=== PATIENT | female | born 1990 | race Hispanic/Latino ===

== ENCOUNTER → 2023-05-27 | Emergency (ER) | payer OTHER ==
[~2023-05-27] MED LIST: DIAZEPAM 5 MG TABLET ONE; KETOROLAC 30 MG/ML INJ ONE; MORPHINE 4 MG/ML SYR ONE; NA CHLORIDE 0.9% 1,000 ML ONE; ONDANSETRON 4 MG/2 ML VIAL ONE; dexAMETHasone 10 MG/ML VIAL ONE
--- OUTSIDE RECORDS SUMMARY | 2023-05-27 05:18 | XMS REPORT | Continuity of Care Document ---
Author Name Unknown Address [address] [place], [place] [address]onnect Address [address] [place] [address] Care Team Providers Care City Carrier Name Role Phone Alka Cadena Attending Clinician Unavailable Encounters Start Date/Time End Date/Time Encounter Type Admission Type Attending Clinicians Care Facility Care Department Encounter ID Source 2023-03-01 08:51:01 Outpatient Alka Cadena [facility] [id number] [facility] [place] [facility]
[2023-05-27 05:55] LABS: Absolute Lymphocytes (CBC) 2.1 K/uL (0.7-4.9); Hematocrit 39.8 % (36.0-45.0); Lymphocytes % 30.1 % (15.3-44.8); MPV 6.9 fL (7.6-11.3); Platelets 311 thou/uL (152-406); RBC Red Blood Cell Count 4.57 M/uL (3.86-4.86)
[2023-05-27 06:09] LABS: Bilirubin Total 0.6 mg/dL (0.2-1.0); Potassium 3.9 mEq/L (3.5-5.1); Protein, Total 7.7 g/dL (6.4-8.2)
[2023-05-27 06:10] LABS: Specific Gravity 1.014 (1.005-1.030)
[2023-05-27 06:12] LABS: Specific Gravity 1.014 (1.005-1.030); Urine Bacteria None Seen /HPF (<20); Urine Bilirubin NEGATIVE (Negative); Urine Blood Negative (Negative); Urine Clarity Extremely Turbid (Clear); Urine Color Light-Yellow (Yellow); Urine Glucose NEGATIVE (Negative); Urine Protein NEGATIVE (Negative); Urine RBC <5 /HPF (None Seen); Urine Urobilinogen Normal (Normal); Urine pH 6.5 (5.0-7.0)
--- NOTE | 2023-05-27 07:02 | EDPHYS ---
Physician Documentation [facility] Name: Mary Jo Salcido Age: 32 yrs Sex: Female : 1990 Arrival Date: 05/27/2023 Time: 05:15 Bed 18 Private MD: ED Physician Pedro Frederick HPI: 05/27 05:38 This 32 yrs old Female presents to ER via Unassigned with complaints of Neck keon and Upper Back Pain, Headache. 05:38 The patient or guardian complains of decreased range of motion, pain, that is acute. keon The symptoms are located on the back of neck. Onset: The symptoms/episode began/occurred 1 day(s) ago. Context: The problem was sustained at work, The neck injury/problem resulted from lifting. Associated signs and symptoms: The patient has no apparent associated signs or symptoms. The pain radiates to the left trapezius and left scapular area. Modifying factors: The symptoms are alleviated by remaining still, the symptoms are aggravated by movement, pressure. Severity of symptoms: At their worst the symptoms were moderate, in the emergency department the symptoms are unchanged. The patient has not experienced similar symptoms in the past. Historical: - Allergies: 05:40 No Known Allergies; ha1 - Immunization history:: Adult Immunizations up to date. - Social history:: Smoking status: Patient denies any tobacco usage or history of. - Family history:: not pertinent. ROS: 05:38 Constitutional: Negative for fever, chills, and weight loss, Eyes: Negative for injury, keon pain, redness, and discharge, ENT: Negative for injury, pain, and discharge, Cardiovascular: Negative for chest pain, palpitations, and edema, Respiratory: Negative for shortness of breath, cough, wheezing, and pleuritic chest pain, Abdomen/GI: Negative for abdominal pain, nausea, vomiting, diarrhea, and constipation, Back: Negative for injury and pain, : Negative for injury, bleeding, discharge, and swelling, MS/Extremity: Negative for injury and deformity, Skin: Negative for injury, rash, and discoloration, Neuro: Negative for headache, weakness, numbness, tingling, and seizure, 05:38 Neck: Positive for pain with movement, pain at rest, stiffness, Exam: 05:38 Constitutional: This is a well developed, well nourished patient who is awake, alert, keon and in no acute distress. Head/Face: Normocephalic, atraumatic. Eyes: Pupils equal round and reactive to light, extra-ocular motions intact. Lids and lashes normal. Conjunctiva and sclera are non-icteric and not injected. Cornea within normal limits. Periorbital areas with no swelling, redness, or edema. ENT: Nares patent. No nasal discharge, no septal abnormalities noted. Tympanic membranes are normal and external auditory canals are clear. Oropharynx with no redness, swelling, or masses, exudates, or evidence of obstruction, uvula midline. Mucous membranes moist. Chest/axilla: Normal chest wall appearance and motion. Nontender with no deformity. No lesions are appreciated. Cardiovascular: Regular rate and rhythm with a normal S1 and S2. No gallops, murmurs, or rubs. Normal PMI, no JVD. No pulse deficits. Respiratory: Lungs have equal breath sounds bilaterally, clear to auscultation and percussion. No rales, rhonchi or wheezes noted. No increased work of breathing, no retractions or nasal flaring. Abdomen/GI: Soft, non-tender, with normal bowel sounds. No distension or tympany. No guarding or rebound. No evidence of tenderness throughout. Back: No spinal tenderness. No costovertebral tenderness. Full range of motion. Skin: Warm, dry with normal turgor. Normal color with no rashes, no lesions, and no evidence of cellulitis. MS/ Extremity: Pulses equal, no cyanosis. Neurovascular intact. Full, normal range of motion. Neuro: Awake and alert, GCS 15, oriented to person, place, time, and situation. Cranial nerves II-XII grossly intact. Motor strength 5/5 in all extremities. Sensory grossly intact. Cerebellar exam normal. Normal gait. Psych: Awake, alert, with orientation to person, place and time. Behavior, mood, and affect are within normal limits. 05:38 Neck: External neck: is normal, no acute changes, ROM/movement: limited range of motion, that is mild, that is moderate, in any direction, Lymph nodes: no appreciated lymphadenopathy, Vital Signs: 05:36 BP 133 / 80; Pulse 65; Resp 17 S; Temp 97.9(O); Pulse Ox 100% on R/A; Weight 77.11 kg; ha1 Height 5 ft. 7 in. ; Pain 10/10; 06:30 BP 110 / 76; Pulse 58; Resp 17 S; Pulse Ox 100% on R/A; ha1 05:36 Body Mass Index 26.63 (77.11 kg, 170.18 cm) 1 05:36 Pain Scale: Adult ha MDM: 05:22 Patient medically screened. [facility] 05:38 Differential diagnosis: Cervical Disc Herniation cervical strain, Degenerative Disc keon Disease fracture, Neck Contusion Osteoarthritis Spondylolisthesis Spondylosis torticollis, Whiplash Injury. Data reviewed: vital signs, nurses notes, lab test result(s), EKG. Consideration of Admission/Observation Escalation of care including admission/observation considered. I considered the following discharge prescriptions or medication management in the emergency department Medications were administered in the Emergency Department. See MAR. Independent interpretation of the following test(s) in the Emergency Department CT Scan: My interpretation is ct c spine. Test considered but Not performed: CT: c spine. Historians other than the Patient: Spouse/Significant Other: well informed. Care significantly affected by the following chronic conditions: none. 05/27 05:35 Order name: Urinalysis w/ reflexes; Complete Time: 07:00 [facility] 05/27 05:35 Order name: PREGU; Complete Time: 07:00 [facility] 05/27 05:35 Order name: CBC with Diff; Complete Time: 07:00 [facility] 05/27 05:35 Order name: Comprehensive Metabolic Panel; Complete Time: 07:00 [facility] 05/27 05:35 Order name: CT C Spine [facility] 05/27 05:43 Order name: IV Start; Complete Time: 05:43 lg3 Administered Medications: 05:50 Drug: NS 0.9% IV 1000 ml IV at 1 bolus Per protocol; 1000 mL bolus Route: IV; Rate: 1 ha1 bolus; Site: right antecubital; 07:00 Follow up: Response: No adverse reaction; IV Status: Completed infusion; IV Intake: ha1 1000ml 05:50 Drug: Ondansetron IVP 4 mg IVP once; over 2 minutes Route: IVP; Site: right antecubital;ha1 06:30 Follow up: Response: No adverse reaction [facility] 05:52 Drug: Ketorolac IVP 30 mg IVP once Route: IVP; Site: right antecubital; ha1 06:30 Follow up: Response: No adverse reaction; Marked relief of symptoms; Pain is decreased ha1 05:54 Drug: morphine IVP or IV 4 mg IVP once over 4 mins Route: IVP; Infused Over: 4 mins; ha1 Site: right antecubital; 06:30 Follow up: Response: No adverse reaction; Pain is decreased; RASS: Alert and Calm (0) ha1 06:00 Drug: Dexamethasone PO 10 mg PO once Route: PO; ha1 06:30 Follow up: Response: No adverse reaction; Marked relief of symptoms ha1 06:00 Drug: Diazepam PO 10 mg PO once Route: PO; ha1 06:59 Follow up: Response: No adverse reaction ha1 Disposition Summary: 05/27/23 07:02 Discharge Ordered Notes: Location: Home [facility] Problem: new keon Symptoms: have improved keon Condition: Stable keon Diagnosis - Torticollis keon - Spasmodic torticollis keon - UTI/ Urinary tract infection, site not specified keon - Strain of muscle, fascia and tendon at neck level, initial encounter [facility] Followup: [facility] - With: Private Physician - When: 2 - 3 days - Reason: Recheck today's complaints, Continuance of care, Re-evaluation by your physician Discharge Instructions: - Discharge Summary Sheet [facility] - Acute Torticollis, Adult [facility] - Urinary Tract Infection, Adult [facility] Forms: - Medication Reconciliation Form [facility] - Thank You Letter [facility] - Antibiotic Education [facility] - Prescription Opioid Use [facility] - Patient Portal Instructions [facility] - Leadership Thank You Letter [facility] Prescriptions: - acetaminophen-codeine 300-30 mg Oral tablet - take 2 tablet ORAL route every 6 hours; 20 tablet; Refills: 0, Product keon Selection Permitted - dexamethasone 2 mg Oral tablet - take 1 tablet ORAL route 2 times per day; 10 tablet; Refills: 0, Product keon Selection Permitted - Valium 5 mg Oral Tablet - take 1 tablet ORAL route every 8 hours As needed; 20 tablet; Refills: 0, [facility] Product Selection Permitted - Diclofenac Sodium 75 mg Oral tablet, delayed release (enteric coated) - take 1 tablet ORAL route 2 times per day; 20 tablet; Refills: 0, Product keon Selection Permitted - Bactrim DS 800-160 mg Oral Tablet - take 1 tablet ORAL route every 12 hours for 7 days; 14 tablet; Refills: 0, [facility] Product Selection Permitted Signatures: Dispatcher [employer] Pedro Omalley MD MD cha Able, Lacie, RN RN lg3 Kaci Robles, RN RN ha1
--- NOTE | 2023-05-27 07:02 | ER ---
Nurse's Notes [facility] Name: Mary Jo Salcido Age: 32 yrs Sex: Female : 1990 Arrival Date: 05/27/2023 Time: 05:15 Bed 18 Private MD: Diagnosis: Torticollis;Spasmodic torticollis;UTI/ Urinary tract infection, site not specified;Strain of muscle, fascia and tendon at neck level, initial encounter Presentation: 05/27 05:36 Chief complaint: Patient states: I was doing some home cleaning yesterday and after ha1 cleaning my neck felt very stiff and painful to move. Coronavirus screen: Vaccine status: Patient reports being unvaccinated. Ebola Screen: No symptoms or risks identified at this time. Initial Sepsis Screen: Does the patient meet any 2 criteria? No. Patient's initial sepsis screen is negative. Does the patient have a suspected source of infection? No. Patient's initial sepsis screen is negative. Risk Assessment: Do you want to hurt yourself or someone else?. Onset of symptoms was May 27, 2023. 05:36 Method Of Arrival: Ambulatory ha1 05:36 Acuity: RACHEAL 3 ha1 Triage Assessment: 05:28 General: Appears uncomfortable, Behavior is cooperative. Pain: Complains of pain in ha1 left scapular area and back of neck Pain does not radiate. Pain currently is 10 out of 10 on a pain scale. Quality of pain is described as throbbing. Neuro: Level of Consciousness is awake, alert, obeys commands, Oriented to person, place, time, situation. Cardiovascular: Capillary refill < 3 seconds Patient's skin is warm and dry. Respiratory: Airway is patent Respiratory effort is even, unlabored, Respiratory pattern is regular, symmetrical. GI: No signs and/or symptoms were reported involving the gastrointestinal system. : No signs and/or symptoms were reported regarding the genitourinary system. Derm: Skin is pink, warm \T\ dry. Musculoskeletal: Circulation, motion, and sensation intact. Reports pain in left scapular area and back of neck. Historical: - Allergies: 05:40 No Known Allergies; ha1 - Immunization history:: Adult Immunizations up to date. - Social history:: Smoking status: Patient denies any tobacco usage or history of. - Family history:: not pertinent. Screenin:41 [facility] ED Fall Risk Assessment (Adult) History of falling in the last 3 months, ha1 including since admission No falls in past 3 months (0 pts) Confusion or Disorientation No (0 pts) Intoxicated or Sedated No (0 pts) Impaired Gait No (0 pts) Mobility Assist Device Used No (0 pt) Altered Elimination No (0 pt) Score/Fall Risk Level 0 - 2 = Low Risk Oriented to surroundings, Maintained a safe environment, Educated pt \T\ family on fall prevention, incl call for assistance when getting out of bed, Hourly rounding (assess needs \T\ fall precautionary measures) done. Abuse screen: Denies threats or abuse. Denies injuries from another. Nutritional screening: No deficits noted. Tuberculosis screening: No symptoms or risk factors identified. Assessment: 05:28 Reassessment: see triage assessment. ha1 06:30 Reassessment: Patient and/or family updated on plan of care and expected duration. Pain ha1 level reassessed. Patient is alert, oriented x 3, equal unlabored respirations, skin warm/dry/pink. pain 4/10 Patient states feeling better. Patient states symptoms have improved. Vital Signs: 05:36 BP 133 / 80; Pulse 65; Resp 17 S; Temp 97.9(O); Pulse Ox 100% on R/A; Weight 77.11 kg; ha1 Height 5 ft. 7 in. ; Pain 10/10; 06:30 BP 110 / 76; Pulse 58; Resp 17 S; Pulse Ox 100% on R/A; ha1 05:36 Body Mass Index 26.63 (77.11 kg, 170.18 cm) ha1 05:36 Pain Scale: Adult ha ED Course: 05:19 Patient arrived in ED. [id number] 05:22 Pedro Frederick MD is Attending Physician. [facility] 05:28 Patient has correct armband on for positive identification. Bed in low position. Call 1 light in reach. Side rails up X 1. Adult w/ patient. 05:36 Kaci Robles, PATRICIA is Primary Nurse. 1 05:40 Triage completed. ha1 05:42 Inserted saline lock: 20 gauge in right antecubital area, using aseptic technique. lg3 Blood collected. 05:42 Comprehensive Metabolic Panel Sent. lg3 05:42 CBC with Diff Sent. lg3 07:03 CT C Spine In Process Unspecified. EDMS Administered Medications: 05:50 Drug: NS 0.9% IV 1000 ml IV at 1 bolus Per protocol; 1000 mL bolus Route: IV; Rate: 1 ha1 bolus; Site: right antecubital; 07:00 Follow up: Response: No adverse reaction; IV Status: Completed infusion; IV Intake: ha1 1000ml 05:50 Drug: Ondansetron IVP 4 mg IVP once; over 2 minutes Route: IVP; Site: right antecubital;ha1 06:30 Follow up: Response: No adverse reaction ha1 05:52 Drug: Ketorolac IVP 30 mg IVP once Route: IVP; Site: right antecubital; ha1 06:30 Follow up: Response: No adverse reaction; Marked relief of symptoms; Pain is decreased ha1 05:54 Drug: morphine IVP or IV 4 mg IVP once over 4 mins Route: IVP; Infused Over: 4 mins; ha1 Site: right antecubital; 06:30 Follow up: Response: No adverse reaction; Pain is decreased; RASS: Alert and Calm (0) ha1 06:00 Drug: Dexamethasone PO 10 mg PO once Route: PO; ha1 06:30 Follow up: Response: No adverse reaction; Marked relief of symptoms ha1 06:00 Drug: Diazepam PO 10 mg PO once Route: PO; ha1 06:59 Follow up: Response: No adverse reaction ha1 Medication: 07:03 VIS not applicable for this client. ha1 Intake: 07:00 IV: 1000ml; Total: 1000ml. ha1 Outcome: 07:02 Discharge ordered by MD. herbert 08:00 Patient left the ED. hb Signatures: Dispatcher [employer] EDMS Pedro Frederick MD MD cha Baxter, Heather, RN RN Alberta Bonilla RN RN lg3 Luz Brown6 Kaci Roblse RN RN ha1
--- NOTE | 2023-05-27 07:13 | RAD REPORT ---
EXAM DESCRIPTION: CT - C Spine Wo Con - 05/27/2023 7:01 am CLINICAL HISTORY: PAIN COMPARISON: No comparisons TECHNIQUE: CT Scan was obtained of the cervical spine without contrast. Reformats were provided in t he sagittal and coronal plane. FINDINGS: No acute fracture of the cervical spine. No traumatic malalignment. Reversal of the normal cervical lordosis may be due to positioning or spasm. No prevertebral edema. Mild uncovertebral join t hypertrophy with small posterior disc osteophyte complexes are present at the at C5-6 and C6-7 leve l. Neural foraminal narrowing at the left side at these levels is minimal. No high-grade central spin al stenosis. No suspicious thyroid nodules or lymphadenopathy. The lung apices are clear. Mucous retention cyst in left maxillary sinus. Mild circumferential thickening in the right maxillary sinus. IMPRESSION: No fracture or traumatic malalignment of the cervical spine. Reversal the normal cervica l lordosis may be due to spasm. Minimal cervical spondylosis without evidence of either clinically si gnificant neural foraminal narrowing or central spinal stenosis. There is symptoms persist, could con equipment manager cervical spine MRI.
[2023-05-27 10:47] VITALS: BP 110/76; TEMP 97.9; O2SAT 100
== END ==
LOC: ER 05:15
DX: G24.3 Spasmodic torticollis (principal); S16.1XXA Strain of muscle, fascia and tendon at neck level, initial encounter; N39.0 Urinary tract infection, site not specified
CPT/HCPCS: 85025; 81001; 36415; 81025; 80053; 72125; J1100; J2405; J7030